=== PATIENT | female | born 1985 | race Caucasian/White ===

== ENCOUNTER 2019-05-02 08:26 | Outpatient (CLI) | payer BC, SELFPAY ==
--- NOTE | 2019-05-02 08:42 | CT_ITS ---
WS: [id number] CT scan of the neck. Additional two-dimensional coronal and sagittal reconstruction was performed. Clinical Data: NEOPLASM OF UNCERTAIN BEHAVIOR OF PHARYNX, HYPERTROPHY OF TO Comparison: None. DLP: 2354.[address] scans at [facility] use at least one of these dose optimization techniques: automat ed exposure control; mA and/or kV adjustment per patient size (includes targeted exams where dose is matched to clinical indication); or iterative reconstruction. Findings: There is a soft tissue mass on the right side of the pharynx measuring 0.75 x 1.20 x 1.56 cm in AP, t ransverse and superior inferior height respectively. No enhancement of this mass is seen. No lymphadenopathy is noted. The salivary glands are unremarkable. There is no prevertebral soft tiss ue swelling. The larynx is symmetric. The thyroid gland shows normal enhancement. The floor of the mo uth and parapharyngeal spaces are normal. The oral cavity is unremarkable. The tongue is normal. The carotid arteries bifurcate normally. The cervical spine is unremarkable. The lung apices show no abnormalities. The portions of the intracranial circulation which are seen demonstrate no abnormaliti es. No erosion of the skull or skull base is seen. CT/CT neck w con* [id number] Impression: 1. Soft tissue mass of the pharynx and seen best on axial image 23 of 59 indent ing the right side. 2. Negative for lymphadenopathy
[2019-05-02] MEDS: iohexol 300 mg/mL 100 mL Btl IV (09:15)
== END 2019-05-02 08:27 | disposition home or self-care (01) ==
PROVIDERS: Family Provider Obstetrics & Gynecology; PCP Otolaryngology; Visit Provider Otolaryngology
DX: D37.05 Neoplasm of uncertain behavior of pharynx (principal); J35.1 Hypertrophy of tonsils
CPT/HCPCS: 70491; Q9967

== ENCOUNTER 2021-04-12 18:33 | Outpatient (CLI) | payer MEDICAID, SELFPAY ==
--- NOTE | 2021-04-12 18:49 | XR_ITS ---
WS: [id number] RIGHT WRIST: 3 VIEW(S) TECHNIQUE: PA, oblique and lateral. HISTORY: right wrist pain COMPARISON: None available. No acute fracture or dislocation. No joint space abnormality. No soft tissue swelling. XR/XR wrist RT min 3V* [id number] IMPRESSION: Negative RIGHT wrist.
--- NOTE | 2021-04-12 18:50 | XRR_ITS ---
PROCEDURE INFORMATION: Exam: XR Right Shoulder Exam date and time: 04/12/2021 6:50 PM Age: 35 years old Clinical indication: Pain; Shoulder; Right; Additional info: Right shoulder pain TECHNIQUE: Imaging protocol: XR Right shoulder. Views: 2 or more views. COMPARISON: No relevant prior studies available. FINDINGS: Bones/joints: Osseous structures are intact. Negative for fracture. Joint spaces are preserved. Soft tissues: Normal. XR/XR shoulder RT min 2V* [id number] IMPRESSION: No acute findings.
== END 2021-04-12 18:34 | disposition home or self-care (01) ==
PROVIDERS: Visit Provider Family Medicine
DX: M25.531 Pain in right wrist (principal); M25.511 Pain in right shoulder
CPT/HCPCS: 73030; 73110

== ENCOUNTER 2021-09-08 16:05 | Outpatient (CLI) | payer MEDICAID, SELFPAY ==
--- NOTE | 2021-09-08 16:00 | MR_ITS ---
WS: [id number] MRI RIGHT SHOULDER NONCONTRAST TECHNIQUE: Sagittal T2, coronal T1, T2 and proton density imaging. Axial gradient PDE imaging. CLINICAL INFORMATION: RIGHT SHOULDER PAIN COMPARISON: None. FINDINGS: Moderate degenerative arthritis AC joint with mild downsloping acromion. Slight subacromial spurring. Small amount of subacromial/subdeltoid fluid. Slight tendinopathy distal supraspinatus. Normal infra spinatus. Normal teres minor and subscapularis. No high-grade rotator cuff tear. Normal biceps labral anchor. Normal biceps tendon in the bicipital groove. Glenoid labrum appears lizbeth ssly normal. No significant joint effusion. Normal visualized soft tissues. Normal intra-articular bi ceps tendon. MR/MR shoulder RT wo con* [id number] IMPRESSION: 1. Moderate degenerative arthritis AC joint with mild downsloping acromion. Sl ight subacromial spurring. Small amount of subacromial/subdeltoid fluid. 2. Tendinopathy distal supraspinatus. 3. No acute rotator cuff tear. Rotator cuff is otherwise normal. 4. Normal biceps tendon in the bicipital groove. Normal biceps labral anchor. 5. Normal bone marrow signal. 6. No significant joint effusion. 7. No other significant findings.
== END 2021-09-08 16:06 | disposition home or self-care (01) ==
LOC: RAD 16:07
PROVIDERS: Visit Provider Family Medicine
DX: M19.011 Primary osteoarthritis, right shoulder (principal)
CPT/HCPCS: 73221